=== PATIENT | male | born 1945 | race Caucasian/White ===

== ENCOUNTER → 2024-08-02 15:08 | Outpatient (REF) | payer OTHER, SELFPAY | LOC: RAD 15:08 | PROVIDERS: ATTENDING PHYSICIAN Family Medicine | DX: R07.9 Chest pain, unspecified (principal); W19.XXXA Unspecified fall, initial encounter | CPT/HCPCS: 71046 ==

== ENCOUNTER 2024-08-30 23:06 | Inpatient (IN) | payer OTHER, SELFPAY ==
[2024-08-30 18:41] VITALS: BP 186/94
[2024-08-30 18:58] LABS: % Basophils 0.5 % (0-2); % Immature Granulocytes 0.6 % (0-0.5); % Lymphocytes 30.2 % (20.5-51.1); % Monocytes 8.7 % (1.7-9.3); Absolute Eosinophils 0.3 10^3/uL (0-0.7); Absolute Immature Granulocytes 0.1 10^3/uL (0-0.05); Absolute Lymphocytes 2.6 10^3/uL (1.2-3.4); Absolute Monocytes 0.8 10^3/uL (0.1-0.6); Absolute Neutrophils 4.9 10^3/uL (1.4-6.5); Hematocrit 45.6 % (39.0-52.0); Hemoglobin 15.5 g/dL (13.0-18.0); Mean Corpuscular Hgb 30.2 pg (27.0-31.0); Mean Corpuscular Volume 88.7 fL (80.0-94.0); Mean Platelet Volume 9.4 fL (7.4-10.4); Nucleated Red Blood Cells % 0 % (-); Platelet Count 165 10^3/uL (130-400); Red Blood Cell Count 5.14 10^6/uL (4.70-6.10); Red Cell Dist. Width 13.4 % (11.5-14.5); White Blood Cell Count 8.7 10^3/uL (4.8-10.8)
[2024-08-30 19:20] LABS: Troponin I < 0.012 ng/ml
[2024-08-30 19:32] LABS: ALT (SGPT) 18 U/L (0-50); AST (SGOT) 23 U/L (17-59); Albumin 4.9 g/dl (3.5-5.0); Alkaline Phosphatase 78 U/L (38-126); Blood Urea Nitrogen 21 mg/dl (9-20); Calcium 9.7 mg/dl (8.4-10.2); Carbon Dioxide 27 mmol/L (22-30); Chloride 101 mmol/L (98-107); Glucose 168 mg/dl (70-99); Potassium 4.2 mmol/L (3.5-5.1); Sodium 139 mmol/L (135-145); Total Bilirubin 0.9 mg/dl (0.2-1.3); Total Protein 7.1 g/dl (6.3-8.2); eGFR > 60.00
[2024-08-30 20:23] VITALS: BMI 23.3
[2024-08-30] MEDS: NSS 500 IV (20:36)
[2024-08-30 20:52] VITALS: BP 161/85
[2024-08-30 21:00] VITALS: BP 156/81
[2024-08-30 22:00] VITALS: BP 151/76
--- NOTE | 2024-08-30 22:14 | HPS.HSE ---
Family Physician
-
Family Physician: Duran Chamorro
Chief Complaint
-
Cardiac Pause
History of Present Illness
Patient is a 79 y/o male past medical history of paroxysmal atrial fibrillation, hypertension, hyperlipidemia and panic disorder who was sent by cardiology for cardiac pause. Patient was wearing an outpatient CAM monitor due to complaints of
'missed heart beats'. He received a call today from cardiology today that he had a prolonged pause (7 seconds per ED sign out) and was instructed to go to the emergency department for pacemaker placement. Patient denies chest pain or palpitations.
Medical History
Past Medical History
Past Medical History: Reports Other
Additional Past Medical History:
Paroxysmal Atrial Fibrillation
Essential Hypertension
Hyperlipidemia
Panic Disorder
GERD
Branch Retinal Vein Occlusion
Past Surgical History: Reports Other
Additional Past Surgical History:
Cholecystectomy
Right Eyelid Skin Cancer Excision
Right Parotid Tumor Excision
ROSSY / Cardioversion
Social History
Tobacco: Former Smoker
Family History
Family History: Not pertinent
Allergies / Home Medications
Allergies reflects when Allergies were last updated in [facility].
Home Medications with original date entered in [facility]
Allergy/Medication List:
Allergies
Allergy/AdvReac Type Severity Reaction Status Date / Time
No Known Allergies Allergy Verified 08/30/24 22:20
Home Medications
apixaban 5 mg tablet (Eliquis) 5 mg PO BID Blood clot prevention/tx 03/27/21
ascorbic acid (vitamin C) 500 mg tablet (Vitamin C) 500 mg PO DAILY Supplement 03/27/21
lisinopril 5 mg tablet 5 mg PO DAILY Blood pressure 03/27/21
multivitamin 1 ea PO DAILY Supplement 03/27/21
nortriptyline 50 mg capsule 50 mg PO HS Depression 03/27/21
pantoprazole 40 mg tablet,delayed release 40 mg PO HS Gastrointestinal issue 03/27/21
simvastatin 40 mg tablet 40 mg PO HS High cholesterol 03/27/21
Review of Systems
-
A 12 point ROS was completed and negative except as noted: Yes
Constitutional: Denies Fever or Chills
Respiratory: Denies Trouble Breathing
Cardiac: Reports Palpitations; Denies Chest Pain
Physical Exam
Vital Signs
Vital Signs
Temp Pulse Resp BP Pulse Ox
98.5 F 88 16 156/81 94
08/30/24 18:41 08/30/24 21:30 08/30/24 21:30 08/30/24 21:00 08/30/24 21:30
Physical Exam
General: Comfortable and Conversant
HEENT: Anicteric and Moist mucous membranes
Respiratory: Clear and Non Labored Respirations
Cardiac: S1/S2 and Regular Rhythm (Occasional short pause)
GI: Soft and Non Tender
Rectal: Deferred by Provider
Musculoskeletal: No Clubbing, No Cyanosis and No Edema
Skin: Warm and Dry
Neuro: Awake, Alert and Oriented
Psych: Calm
Laboratory Results
-
08/30/24 18:50
08/30/24 18:50
Laboratory Results
Total Bilirubin 0.9 mg/dl (0.2-1.3) 08/30/24 18:50
AST 23 U/L (17-59) 08/30/24 18:50
ALT 18 U/L (0-50) 08/30/24 18:50
Alkaline Phosphatase 78 U/L (38-126) 08/30/24 18:50
Troponin I < 0.012 ng/ml 08/30/24 18:50
Data Reviewed
-
Lab Data: Labs Reviewed by me
Impression/Plan
-
Sick Sinus Syndrome with Sinus Pauses
-Admit to IVU with external pacer pads in place
-Consult Cardiology
-Atropine prn to be kept at bedside should patient developed symptomatic bradycardia
-NPO after midnight for pacemaker placement in AM
Paroxysmal Atrial Fibrillation
-Eliquis on hold for pacemaker
Essential Hypertension
-Continue lisinopril with hold parameters
Hyperlipidemia
-Continue simvastatin
Panic Disorder
-Continue nortriptyline
DVT proph: SCDs
Code Status: Full Code
--- NOTE | 2024-08-30 22:38 | W.PN.UPDATE ---
Update Note
Progress Note Update
This is an addendum to H&P written by DEDRA Ann
I saw and examined the patient.
The CLINICAL ATHLETIC INSTRUCTOR's note was reviewed and I agree with the note.
Comment:
Mr. Awais Davis is a 79 yo man with hx afib on Eliquis, GERD, essential HTN, anxiety sent to the ER as outpatient holter monitor showed frequent pauses, one as long as 7 seconds.
Triage VSS. Labs WNL< Trop < 0.012.
EKG with sinus tachycardia @ 102
Tele with frequent 1-2 sec pauses
sick sinus syndrome
-admit to IVU
-keep pacer verenice on patient, atropine at bedside PRN
-Cardiology aware of admission
-NPO after MN for PPM
-hold [employer] SUPER[employer]OR Eliquis
Afib
-hold [employer]PER[employer] eliquis
Essential HTN
-[employer] SUPER[employer]OR Lisinopril
GERD - [employer] SUPER[employer]OR Protonix
HLD - [employer] SUPER[employer]OR Statin
Anxiety - [employer] SUPER[employer]OR Nortriptyline
DVT PPx SCD
FULL CODE
76 minutes spent on patient care
--- NOTE | 2024-08-30 22:48 | ED.GENMED ---
History of Present Illness
General
Chief Complaint: Heart Rate Problem
Source: patient
Exam Limitations: none
Time Seen by Provider: 08/30/24 20:22
Nursing documentation reviewed up to this point in time: agreed with
History of Present Illness
History of Present Illness:
79-year-old male past medical history of previous A-fib currently on Eliquis, hypertension hyperlipidemia that had an outpatient Holter monitor that was showing significant 7-second pauses. He was contacted by cardiology and told to come to the ER
to be admitted for a pacemaker tomorrow morning. He otherwise feels well at this point. Denies chest pain shortness of breath
Past History
Past History
ED Past Medical History: Arrthythmia (Atrial fibrillation), GERD, HTN, Hypercholesterolemia and Other (Impaired vision)
ED Past Surgical History: Cholecystectomy and Tonsilectomy
Social History
Tobacco: Non-smoker
Alcohol: None
Drug: None
Personal:
Living: with family
Employment: Employed
Review of Systems
Review of Systems
Allergies reviewed?: Yes
All Other Systems: ROS reviewed and negative except as documented in HPI and ROS
Phy Exam
Physical Exam
Physical Exam:
GENERAL: Alert , in no apparent distress
EYE: pupils equal and reactive
NECK: Supple, no significant adenopathy.
ENT: o/p clr, mmm.
CARDIAC: Regular rate and rhythm .
LUNGS: Clear breath sounds bilaterally, no acute respiratory distress, no wheezes/rales/rhonchi
ABDOMEN: Soft, without focal tenderness, no r/g, no cvat
NEUROLOGICAL: Alert and oriented, no focal neuro deficits
SKIN: Warm and dry, skin intact.
MUSCULOSKELETAL: No edema, well perfused.
PSYCH: Normal and appropriate interaction.
Course
Orders/Labs/Results
Orders:
Orders
08/30/24 18:34
Electrocardiogram (*1) Urgent
Reason for Study: Bradycardia / Tachycardia
EKG- Treatment ONCE
08/30/24 18:50
Complete Blood Count/With Diff Urgent
Comprehensive Metabolic Panel Urgent
TSH Reflex To Free T4 Urgent
Comment: ADD ON
Troponin I Urgent
08/30/24 20:22
0.9% Sodium Chloride 500 ml [Nss] 500 ml IV BOLUS
08/30/24 22:25
Admit/Transfer Patient As Directed
Co-Sign Provider:
Level of Care: Inpatient admission
Assign to:: IVU
Physician / Group: Kamran
Diagnosis: SSS
Reason for Hospitalization: Pacemaker
Expected length of stay greater than two midnights?: Yes
ELOS- Estimated Length of Stay in days: 3
I certify the patient meets the requirements for IP care: Yes
08/30/24 22:26
PRN Pain Medication Management As Directed
May give lesser potent ordered pain med per pt: Yes
preference::
Protocol:: Medication orders for pain may be administered in a
manner that supports deferring to patient preference
when the pt is:
- Requesting an ordered lesser potent pain medication.
Least to most potent pain medications are defined
as: acetaminophen < NSAID < tramadol < opioids
(morphine, oxycodone, hydromorphone).
- Requesting a lesser dose of the same medication IF
ORDERED.
- Requesting a less intrusive route of administration
if both routes are prescribed by the provider (PO <
IV).
08/30/24 22:29
Code Status As Directed
Resuscitation Status: Full Code
08/30/24 22:32
Add On- LAB Urgent
Tests Added?: TSH w/Reflex
Abnormal Lab Results
08/30/24
18:50
Abs Immat Gran (auto) 0.1 H 10^3/uL
(0-0.05)
Absolute Monos (auto) 0.8 H 10^3/uL
(0.1-0.6)
Immature Gran % 0.6 H %
(0-0.5)
BUN 21 H mg/dl
(9-20)
Glucose 168 H mg/dl
(70-99)
08/30/24 18:50
08/30/24 18:50
Vital Signs
Initial and Last Documented VS:
Initial Vital Signs
Temp Pulse Resp BP Pulse Ox
98.5 F 93 16 186/94 98
08/30/24 18:41 08/30/24 18:41 08/30/24 18:41 08/30/24 18:41 08/30/24 18:41
Last Documented Vital Signs
Temp Pulse Resp BP Pulse Ox
98.5 F 65 18 151/76 97
08/30/24 18:41 08/30/24 22:45 08/30/24 22:45 08/30/24 22:00 08/30/24 22:45
MDM/Problems Addressed
MDM/Problems Addressed:
79-year-old male presenting to the emergency department today for pacemaker. Had sinus pauses on Holter monitor. Feels generally well at this initial blood pressure elevated otherwise vital signs are normal. Some slight pauses below 2 seconds
while here labs showing potential slight dehydration was given some fluids troponin negative Case discussed with cardiology plan to admit for pacer tomorrow. Pads were placed for safety.
*Critical Care Note
Total Time (30-74mins, 75-104mins- exclusive of procedures): Not Applicable
ED Attending Note
-
Portions of this chart may have been created with voice recognition software.� Occasional wrong word or��sound alike� substitutions may have occurred due to the inherent limitations of voice recognition software.
Discharge Plan
Departure
Patient Disposition: Admit
Date of Disposition: 08/30/24
Time of Disposition: 22:50
Admit to: IVU
Admit to doctor: Madai
Presentation/result/management discussed w/ accepting MD/DO: Hospitalist
Patient with high blood pressure during this ER visit?: No
Condition: Fair
Covid-19: Not Applicable
Discharge Problem:
Sinus pause
Prescriptions:
No Action
multivitamin 1 EACH tablet
1 ea PO DAILY
simvastatin 40 MG tablet
40 mg PO HS
ascorbic acid (vitamin C) [Vitamin C] 500 MG tablet
500 mg PO DAILY
pantoprazole 40 MG tablet,delayed release (DR/EC)
40 mg PO HS
lisinopril 5 MG tablet
5 mg PO DAILY
nortriptyline 50 MG capsule
50 mg PO HS
Eliquis 5 MG tablet
5 mg PO BID
Referrals:
Duran Chamorro DO [Family Provider] -
Interventions
Interventions:
*Risk Screen - Suicide Last Done: 08/30/24 18:41
*General Assessment Last Done: 08/30/24 20:25
*Neglect/Abuse Screening Last Done: 08/30/24 20:25
*ED- Fall Risk Assessment Last Done: 08/30/24 20:25
*ED COVID-19 Vaccine History Last Done: 08/30/24 20:25
ED- Cardiac Assessment Last Done: 08/30/24 20:46
ED- Pulmonary Assessment Last Done: 08/30/24 20:46
Discharge Date and Time
Print Language: GREEK
[2024-08-30 23:00] VITALS: BP 145/82
[2024-08-30 23:46] LABS: TSH Reflex To Free T4 0.74 uIU/ml (0.47-4.68)
[2024-08-31] VITALS (19 sets, daily range): BP systolic 123–187; BP diastolic 75–97; BMI 23.3; BMI 23.4
--- NOTE | 2024-08-31 07:16 | PTCARENOTE ---
received the patient from the ED at approx 0615. AAOx3. NPO since midnight. SR on tele 90s. bp 163/88. CHG wipes completed. chest clipped. answered all questions. call kan within reach.
[2024-08-31 07:36] LABS: Hepatitis C Antibody Negative (Negative)
--- NOTE | 2024-08-31 08:00 | PTCARENOTE ---
Patient sent to heart station on a stretcher
[2024-08-31] MEDS: ZESTRIL 5 MG PO (09:24)
--- NOTE | 2024-08-31 09:26 | CON.CAR ---
Consultation
Consultation Request
Date/Time Consultation Requested: 08/31/24, 7am
Date/Time Consultation Performed: 08/31/24, 730am
Requesting Provider: Jani
Performing Provider: Cassandra
Reason for Consultation: bradycardia
Medical History
-
Chief Complaint: abnormal library monitor
History of Present Illness:
79 yo male with PMH of paroxysmal A fib on eliquis, sinus node dysfunction, HTN is admitted due to severe sinus node dysfunction with 6-7 second sinus pauses on outpatient monitor.
Patient has history of falls, and there was concern for syncope/pre-syncope, and monitor was ordered.
Patient is a manager small business.
Past Medical History
Past Medical History: Arrhythmias (paroxysmal A fib) and HTN
Past Surgical History: Other (cataract 2023)
Social History
Tobacco: Non-Smoker
Family History
Family History: Early CAD (none)
Allergies / Home Medications
Allergy/AdvReac Type Severity Reaction Status Date / Time
No Known Allergies Allergy Verified 08/30/24 22:20
�Medication �Instructions �Recorded �Confirmed �Type
apixaban 5 mg tablet (Eliquis) 5 mg PO BID Blood clot 03/27/21 08/30/24 History
prevention/tx
ascorbic acid (vitamin C) 500 mg 500 mg PO DAILY Supplement 03/27/21 08/30/24 History
tablet (Vitamin C)
lisinopril 5 mg tablet 5 mg PO DAILY Blood pressure 03/27/21 08/30/24 History
multivitamin 1 ea PO DAILY Supplement 03/27/21 08/30/24 History
nortriptyline 50 mg capsule 50 mg PO HS Depression 03/27/21 08/30/24 History
pantoprazole 40 mg tablet,delayed 40 mg PO HS Gastrointestinal issue 03/27/21 08/30/24 History
release
simvastatin 40 mg tablet 40 mg PO HS High cholesterol 03/27/21 08/30/24 History
Review of Systems
-
History Source: Patient
All other systems: Negative unless noted
Neurological: Dizzy
Physical Exam
Vital Signs
Temp Pulse Resp BP Pulse Ox
97.7 F 97 20 187/97 96
08/31/24 06:30 08/31/24 06:21 08/31/24 06:30 08/31/24 06:21 08/31/24 06:30
Lab Results
08/30/24 18:50
08/30/24 18:50
Troponin I < 0.012 ng/ml 08/30/24 18:50
Physical Exam
General: Well Developed and Well Nourished
HEENT: Normocephalic and Anicteric
Respiratory: Clear and Non Labored Respirations
Cardiac: S1/S2 (normal), Regular Rhythm, Murmur (none), Peripheral Edema (none) and JVD (none)
Musculoskeletal: Clubbing, No Cyanosis and No Edema
Skin: Warm and Dry
Neuro: AO x 3
Psych: Calm
Impression / Plan
-
79 yo male with PMH of paroxysmal A fib on eliquis, sinus node dysfunction, HTN is admitted due to severe sinus node dysfunction with 6-7 second sinus pauses on outpatient monitor.
# Sinus node dysfunction, severe
-occupation: manager small business
-6-7 second sinus pauses on outpatient monitor
-likely symptomatic with prior h/o of falls, suspected syncope/pre-syncope based on outpatient records
-echo today
-last eliquis: 08/30 5pm
-discussed with EP: PPM today
# Paroxysmal A fib
-sinus on tele, with 2-3 second sinus pauses here
-assess to resume eliquis post PPM
# HTN
-he reports component of white coat syndrome
-chronic, continue lisinopril
Data Reviewed
-
EKG: Tracing Personally Visualized and interpreted (ST 102) and Other (Tele: sinus, 2-3 second pauses)
Labs: Labs Reviewed by me
Old Records: Reviewed
--- NOTE | 2024-08-31 11:55 | W.PN.UPDATE ---
Update Note
Progress Note Update
Briefly, patient is a pleasant 79-year-old male with a past medical history of significant for hypertension, sinus node dysfunction, paroxysmal atrial fibrillation on Eliquis who presents from outpatient office due to severe sinus node dysfunction
with 6-7-second sinus pauses on event monitor as outpatient. Patient has a longstanding history of falls and there is a concern for syncope/presyncope for which the monitor was initially ordered. In discussion with patient, patient notes skipped
heartbeats but denies any current episodes of syncope. Review of chief psychology demonstrates sinus rhythm/sinus tachycardia with sinus pauses 3-4 seconds. Patient is not on rate or AV vic blocking agents. In the setting of patient's frequent
symptomatic irreversible sinus pauses, sick sinus syndrome, recent falls, would recommend patient undergo implant dual-chamber pacemaker. Regarding pacemaker, we discussed pacemaker indications and device implant in detail. For implant there is an
approximate 1:1000 risk of OH/stroke/ and a 1% risk of pneumothorax/tamponade/infection/bleeding. We also discussed post procedure implant restrictions including positions to avoid with implant arm for first six weeks after implant as well as
driving restrictions. I took time to answer all questions. Preprocedure orders placed. Consent obtained. Patient verbalized understanding and agreed with plan.
--- NOTE | 2024-08-31 15:45 | PTCARENOTE ---
Report called to label rewinder. CHG wipes to chest, gown changed. Patient sent in bed
--- NOTE | 2024-08-31 16:25 | CM ---
spoke to pt i room, he is prev indep, lives with his in a 1 story home with 3 steps to enter. he denies any dc planning neds or dme's. plan is for dc to home when medically stable.
--- NOTE | 2024-08-31 17:46 | W.PN.HOSP.TC ---
Today's Communication/Plan
-
Assessment / Plan
Assessment / Plan
NAD
Scleral Anicteric
MMM
No JVD
CTABL
RRR, S1/S2
Soft, NT, ND, BS+
Warm, Dry
AAOx3
Calm
Sick sinus syndrome with sinus pauses
6-7 seconds sinus pause
Cardiology evaluated
Monitoring on telemetry
N.p.o.
PPM to be placed today
Avoid AV vic blocking agent
Continue to have pacer pads on cutaneously
Paroxysmal atrial fibrillation
Sinus on telemetry with 2 to 3-second sinus pauses
Resume Eliquis post PPM
Hyperlipidemia
Continue statin
Panic disorder
Continue nortriptyline
Hypertension
Continue lisinopril
Anticipated Discharge: Within 24 hours
Subjective/Interval History
-
Date of Service: August 31, 2024
Seen and examined. No new complaints. No acute overnight events.
He states he can feel in his heart stops beating/skips a beat
Objective Data
-
Vital Signs:
Vital Signs
Temp Pulse Resp BP Pulse Ox
98.4 F 100 20 153/75 95
08/31/24 11:20 08/31/24 12:15 08/31/24 11:20 08/31/24 11:20 08/31/24 11:20
I&O
08/30/24 08/31/24 09/01/24
06:59 06:59 06:59
Output Total 300 / 300 1000 / 1000
Balance -300 / -300 -1000 / -1000
--- NOTE | 2024-08-31 18:10 | ITS.CL.PACE ---
Manager Of Employee Relations - Pacemaker Implant
Pacemaker Implant
Procedure Report:
Primary Care Doctor: Duran Chamorro MD
Primary Greenskeeper Head: Stevie Bull MD
Procedure Date: 08/31/2024
Name of procedure:
1. Placement of a dual-chamber pacemaker with left bundle area pacing lead for conduction system pacing
2. Subclavian venography
History:
1. Patient is a pleasant 79-year-old male with a past medical history of significant for hypertension, sinus node dysfunction, paroxysmal atrial fibrillation on Eliquis who presents from outpatient office due to severe sinus node dysfunction with
6-7-second sinus pauses on event monitor as outpatient.
2. Please refer to H&P for complete history.
Indication:
Sick sinus syndrome
Sinus node dysfunction
symptomatic sinus pauses
Methods:
After informed consent was obtained, the patient was brought to the EP laboratory in a postabsorptive, nonsedated state. Peripheral IV access was established. Prophylactic antibiotics were administered prior to incision. Continuous ECG, blood
pressure, and pulse oximetry were initiated. Cardioversion patch electrodes were placed on the patient's chest and back. A grounding patch was applied to the skin. Sedation was administered by anesthesia services.
In order to define the extrathoracic portion of the subclavian vein and exclude significant venous obstruction or anomalous anatomy, subclavian venography was performed prior to the procedure. Using the patient's left peripheral IV, contrast was
injected and images were recorded. The left subclavian vein and SVC were found to be widely patent.
The left chest was prepared and draped in a sterile fashion. A time-out was performed. Local anesthesia was injected in the subcutaneous tissue in the infraclavicular area. An incision was made medial to the deltopectoral groove. The subcutaneous
tissue was dissected the level of the prepectoral fascia. A subcutaneous pocket was created. Under fluoroscopic guidance and with the assistance of the images from the venogram, 2 separate venipunctures were made using micropuncture and modified
Seldinger technique. These were performed in the extrathoracic portion of the subclavian vein. Guidewires were passed and two peel-away sheaths were placed, and used to advance leads into the circulation.
Fluoroscopy was used to determine likely anatomic site for left bundle branch pacing. The Medtronic C315 sheath was used to deliver the Medtronic 3830 Selectsecure pacing lead with the helix exposed just exposed from the sheath tip during continuous
monitoring when pacemapping the septum during gentle clockwise rotation to obtain a paced QRS morphology of a W pattern in lead V1. Once the suspected optimal site was identified, lead deployment was performed with several rapid rotations as paced
QRS morphology was intermittently monitored until a paced QRS complex in lead V1 demonstrated development of an R wave (qR or rSR). Unipolar pacing impedance dropped by approximately 100-200 ohms suggesting it had reached the left ventricular
subendocardial. Stable VEgm injury current is present throughout lead position and at end of case. Final unipolar pacing impedance is 950 Ohms. Unipolar pacing threshold is stable at 0.75 V @ 0.4 ms. The patient had pre-existing narrow QRS. Final
conduction system paced QRS complex duration is 90 ms, LVAT is 88 ms, and peak V5 -> peak V1 timing is 31 ms. The C315 sheath was slit under fluoroscopy ensuring lead position and stability.
Next, the right atrial lead was positioned in the right atrial appendage. Adequate sensing and pacing parameters were found, and no diaphragmatic stimulation was seen with high-output pacing. Both sheaths were split, and the leads were secured to
the fascia with Ethibond ties.
The pocket was flushed with antibiotic solution and hemostasis was assured. The generator was connected to the leads and placed inside the pocket. The device was sutured to the fascia. Antibiotic envelope was used. Floseal was applied. The wound
was closed with 3 running layers of absorbable suture, and steri-strips were applied. Dressing applied over steri-strips in standard fashion.
Following the procedure, the patient was taken to the recovery area in stable condition. A chest x-ray to be obtained post procedure as routine.
Lead parameters and device programming:
- RA Lead (Medtronic, Model 5076, #[id number]): Sensing 1.1 mV, Pacing threshold 2.0 V at 0.4 ms, Imp 646 Ohm
- RV Lead (Medtronic, Model 3830, #[id number]): Sensing 7.4 mV, Pacing threshold 0.75 V at 0.4 ms, Imp 684 Ohm
- Device: Medtronic, Model W1DR01 pacemaker (# [id number]), programmed AAIR�DDDR, mode switch on, lower tracking rate 60, upper tracking rate 130 ppm
Conclusions:
1. Successful placement of a dual-chamber pacemaker with conduction system pacing (LBBAP)
2. Subclavian venography
Recommendations:
1. Return to patient room
2. Chest x-ray today, [facility] in AM
3. IV antibiotics while the patient is admitted.
4. OK to resume home medications as indicated; if site looks OK 09/01/2024, OK to resume OAC 09/02/2024 AM
5. Pressure dressing to be removed in AM, aquacell to remain until wound check
6. Follow-up will be arranged in the office in 7-10 days post-discharge
Pelon Calderon, DO, FACC
Clinical Cardiac Balance Recesser
cc: Dr Duran Chamorro, Dr Stevie Bull
--- NOTE | 2024-08-31 18:10 | PTCARENOTE ---
Patient out of CCL around 1800 from PPM insertion. Left arm immobilizer in place, dressing CDI at this time. Patient AOx4, does not c/o pain at this time. Tele strip completed per protocol= ST 106bpm. All needs met at this time, call kan within
reach.
--- NOTE | 2024-08-31 20:32 | PTCARENOTE ---
received pt at change of shift. EKG obtained and CXR completed. VSS, SR on tele monitor. Left arm immobilizer on. Left chest wall dressing CDI. Pt educated on restrictions, call kan within reach.
[2024-08-31] MEDS: PROTONIX 40 MG PO (22:27)
[2024-08-31] MEDS: PAMELOR 50 MG PO (22:27)
[2024-08-31] MEDS: LIPITOR 20 MG PO (22:27)
[2024-08-31] MEDS: ANCEF 5 IV (23:54)
[2024-09-01 04:37] VITALS: BP 127/68
[2024-09-01 04:57] LABS: Hematocrit 43.6 % (39.0-52.0); Hemoglobin 14.8 g/dL (13.0-18.0); Mean Corp Hgb Conc. 33.9 g/dL (33.0-37.0); Mean Corpuscular Hgb 29.7 pg (27.0-31.0); Mean Corpuscular Volume 87.4 fL (80.0-94.0); Mean Platelet Volume 9.1 fL (7.4-10.4); Platelet Count 142 10^3/uL (130-400); Red Blood Cell Count 4.99 10^6/uL (4.70-6.10); Red Cell Dist. Width 13.4 % (11.5-14.5); White Blood Cell Count 9.1 10^3/uL (4.8-10.8)
[2024-09-01 05:06] VITALS: BMI 23.0
--- NOTE | 2024-09-01 05:07 | PTCARENOTE ---
Pt NSR with Apaced on monitor. Denies pain or SOB. OOB with x1 assist. Call kan in reach
[2024-09-01 05:20] LABS: Blood Urea Nitrogen 19 mg/dl (9-20); Calcium 9.3 mg/dl (8.4-10.2); Carbon Dioxide 25 mmol/L (22-30); Chloride 104 mmol/L (98-107); Estimated Creatinine Clearance 84 ml/min; Glucose 115 mg/dl (70-99); Magnesium 2.2 mg/dl (1.6-2.3); Potassium 4.2 mmol/L (3.5-5.1); Sodium 138 mmol/L (135-145); eGFR > 60.00
[2024-09-01 06:56] VITALS: BP 117/67
[2024-09-01] MEDS: ZESTRIL 5 MG PO (08:45)
[2024-09-01] MEDS: ANCEF 5 IV (08:45)
--- NOTE | 2024-09-01 09:55 | W.PN.CD ---
Addendum entered and electronically signed by Duran Vasquez MD 09/01/24 10:06:
I saw and examined the patient.
The FISHING VESSEL DECKHAND's note was reviewed and I agree with the note.
Patient feels well and wants to go home. Left upper chest pacemaker site appears fine. Reviewed issues with EP/Dr. Cisse. Device functioning appropriately by interrogation.
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
reading. This has been communicated with Dr. Gunter/hospitalist who is coordinating follow-up CT for this.
From a cardiology standpoint patient stable for discharge. Eliquis to be resumed tomorrow morning
Original Note:
Today's Communication / Plan
-
Okay for home today from cardiac perspective. Pacemaker site looks good and he has incision check planned at [facility] office later this week, then he will follow-up with Dr. Bull as usual. We reviewed activity restrictions and site care. Resume Eliquis
tomorrow AM.
Impression / Plan
-
79 yo male with PMH of paroxysmal A fib on eliquis, sinus node dysfunction, HTN is admitted due to severe sinus node dysfunction with 6-7 second sinus pauses on outpatient monitor.
# Sinus node dysfunction, severe
-occupation: business management manager
-6-7 second sinus pauses on outpatient monitor
-likely symptomatic with prior h/o of falls, suspected syncope/pre-syncope based on outpatient records
-echo 08/31/24: Normal biventricular size and systolic function without regional wall motion abnormality. Estimated LVEF 65-70%. No significant valve disease. Mildly dilated aortic root (SOV 4.2cm).
-now s/p pacemaker with Dr. Calderon 08/31/24. Left pectoral incision site looks good- no hematoma, Aquacel dressing is intact. Carelink monitor stable this AM. Follow-up incision check is arranged with [facility] office, then follow-up with Dr. Bull as
already planned. We reviewed activity restrictions and site care.
# Paroxysmal A fib
-in SR here
-resume Eliquis 09/02/24
# HTN
-chronic, stable
-continue ACEI
# Abnormal CXR:
-per radiology report- deviation of the trachea toward the right, suggesting a intrathoracic mass with mass effect in the upper chest. 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 As warranted, further evaluation with CT of
the chest could be performed. Relayed to hospitalists for further w/u.
Physical Exam
Vital Signs/Labs
Vital Signs
Temp Pulse Resp BP Pulse Ox
97.5 F 72 20 127/68 94
09/01/24 06:55 09/01/24 06:15 09/01/24 06:55 09/01/24 04:37 09/01/24 06:55
08/31/24 09/01/24 09/02/24
06:59 06:59 06:59
Actual Weight 80.3 kg 79.1 kg
09/01/24 04:44
09/01/24 04:44
Magnesium 2.2 mg/dl (1.6-2.3) 09/01/24 04:44
LAB Results
08/30/24
18:50
Troponin I < 0.012
Physical Exam
Constitutional: No acute distress
EENT: Anicteric
Cardiovascular: Rhythm & rate is regular
Respiratory: Respiratory effort normal and Lungs clear to auscul.
Neuro/Psych: AO x 3
Other: Cardiac Device Site (aquacell intact, no hematoma)
Data Reviewed
-
Date of Service: September 01, 2024
EKG: Other (SR, pacing noted)
Labs: Labs Reviewed by me
[2024-09-01 10:45] VITALS: BP 133/68
--- NOTE | 2024-09-01 12:42 | PTCARENOTE ---
Patient discharged to home. Instructions provided, patient verbalized understanding. IV and telemetry removed. Precautions reviewed. Patient escorted to main lobby
--- NOTE | 2024-09-01 14:30 | W.DCSUMMARY ---
Discharge Summary
Discharge Data
Date of Admission: 08/30/24
Date of Discharge: 09/01/24
-
Pending Results: No
Hospital Course
79 y/o male past medical history of paroxysmal atrial fibrillation, hypertension, hyperlipidemia and panic disorder
Presented with from cardiology office for concern of sinus pause with complaints of missed heart beats. Evaluated by electrophysiology and recomened pacemaker placement that happened on 09/01/2024. Pre and Post PPM chest imaging completed. Findings
as below but will need to obtain a CT Chest as an outpatient. PCP (Dr. Chamorro) updated over [employer] about this.
CXR
IMPRESSION:
Pleural thickening and minor parenchymal opacity noted on the left, as described. In the absence of any prior examination fora comparison, this could represent chronic pleural-parenchymal changes, possibly related to reported history of recent
trauma, or subtle pneumonia. There is also mild soft tissue thickening along the left lateral margin of the trachea, as described. If there are no prior examinations available for comparison, follow-up chest CT would be recommended for further
evaluation of these findings.
In accordance with Act 112, known as the Patient Test Results Information Act, a letter will be sent to the patient which notifies the patient that a significant abnormality may exist. The letter will be sent within approximately 20 days of the
date the results were sent to the ordering health care practitioner.
CXR
IMPRESSION:
Placement of left chest wall pacemaker, lead tips right atrium and right ventricle. No evidence for significant pneumothorax.
Deviation of the trachea toward the right, suggesting a intrathoracic mass with mass effect in the upper chest. 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 As warranted, further evaluation with CT of the chest could be
performed.
Seen and examined on the day of discharge. No new complaints. No acute overnight events
NAD
Scleral Anicteric
MMM
No JVD
CTABL
RRR, S1/S2
Soft, NT, ND, BS+
Warm, Dry
AAOx3
Calm
More than 30 minutes spent in discharge including
Final examination of the patient
Summarizing hospital stay
Instructions for continuing care to all relevant caregivers
Preparation of discharge records, prescriptions, and referral forms
Total time spent (in minutes): 33mins
Discharge Plan
-
Patient Disposition: Home (Routine Discharge)
Discharge Diagnosis/Procedures: Pacemaker implant
Diet: Low Cholesterol
Activity Restrictions/Additional Instructions:
Presented with from cardiology office for concern of sinus pause with complaints of missed heart beats. Evaluated by electrophysiology and recomened pacemaker placement that happened on 09/01/2024. Pre and Post PPM chest imaging completed. Findings
as below but will need to obtain a CT Chest as an outpatient. PCP (Dr. Chamorro) updated at bedside about this.
CXR
IMPRESSION:
Pleural thickening and minor parenchymal opacity noted on the left, as described. In the absence of any prior examination fora comparison, this could represent chronic pleural-parenchymal changes, possibly related to reported history of recent
trauma, or subtle pneumonia. There is also mild soft tissue thickening along the left lateral margin of the trachea, as described. If there are no prior examinations available for comparison, follow-up chest CT would be recommended for further
evaluation of these findings.
In accordance with Act 112, known as the Patient Test Results Information Act, a letter will be sent to the patient which notifies the patient that a significant abnormality may exist. The letter will be sent within approximately 20 days of the
date the results were sent to the ordering health care practitioner.
CXR
IMPRESSION:
Placement of left chest wall pacemaker, lead tips right atrium and right ventricle. No evidence for significant pneumothorax.
Deviation of the trachea toward the right, suggesting a intrathoracic mass with mass effect in the upper chest. 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 As warranted, further evaluation with CT of the chest could be
performed.
Stand Alone Forms: [facility] Inst - Implanted Device
Referrals:
[facility]- [facility] [Provider Group] - 09/06/24 2:40 pm (Incision check appointment)
Duran Chamorro, DO [Family Provider] -
Stevie Bull MD [Active] - 02/06/25 10:20 am
Additional Discharge Medication Instructions: Resume Eliquis on Saturday 09/02 am
Prescriptions:
Continued
multivitamin 1 EACH tablet
1 ea PO DAILY
simvastatin 40 MG tablet
40 mg PO HS
ascorbic acid (vitamin C) [Vitamin C] 500 MG tablet
500 mg PO DAILY
pantoprazole 40 MG tablet,delayed release (DR/EC)
40 mg PO HS
lisinopril 5 MG tablet
5 mg PO DAILY
nortriptyline 50 MG capsule
50 mg PO HS
Eliquis 5 MG tablet
5 mg PO BID
Discharge Orders:
Discharge Patient (As Directed); Ordered 09/01/24
Ordered By: Faraz Gunter
Care Plan Goals
Care Plan Goals:
Problem: Readiness for enhanced knowledge related to diagnosis and treatment plan
Goal: Understand your diagnosis and treatment plan needs, including medications if applicable.
Instructions: Know your diagnosis, underlying causes and treatment plan options, including medications if applicable. Consult with your health care team to learn about your diagnosis and treatment plan, including medications if applicable.
Discharge Date and Time
Discharge Date/Time: 09/01/24 12:52
Print Language: MICRONESIAN
== END 2024-09-01 12:52 | disposition home or self-care (01) | DRG 244 ==
LOC: IVU 23:06
PROVIDERS: Internal Medicine Cardiovascular Disease; Nurse Practitioner Adult Health; Student in an Organized Health Care Education/Training Program; ADMITTING PHYSICIAN Student in an Organized Health Care Education/Training Program; ATTENDING PHYSICIAN Hospitalist; CONSULT PHYSICIAN Internal Medicine; EMERGENCY PHYSICIAN Emergency Medicine; FAMILY PHYSICIAN Family Medicine
PROC: 0JH606Z Insertion of Pacemaker, Dual Chamber into Chest Subcutaneous Tissue and Fascia, Open Approach (ICD-10-PCS; 2024-08-31)
PROC: 02HK3JZ Insertion of Pacemaker Lead into Right Ventricle, Percutaneous Approach (ICD-10-PCS; 2024-08-31)
PROC: 02H63JZ Insertion of Pacemaker Lead into Right Atrium, Percutaneous Approach (ICD-10-PCS; 2024-08-31)
DX: I49.5 Sick sinus syndrome (principal); I48.0 Paroxysmal atrial fibrillation; I10 Essential (primary) hypertension; E78.00 Pure hypercholesterolemia, unspecified; K21.9 Gastro-esophageal reflux disease without esophagitis; F41.0 Panic disorder [episodic paroxysmal anxiety]; Z79.01 Long term (current) use of anticoagulants; Z87.891 Personal history of nicotine dependence
CPT/HCPCS: 33208; 71045; 80048; 80053; 83735; 84443; 84484; 85025; 85027; 86803; 93005; 93306; 96360; 99285; C1769; C1785; C1887; C1892; C1898; Q9967

== ENCOUNTER → 2024-09-15 09:18 | Outpatient (REF) | payer OTHER, SELFPAY | LOC: RAD 09:18 | PROVIDERS: ATTENDING PHYSICIAN Family Medicine | DX: R22.1 Localized swelling, mass and lump, neck (principal) | CPT/HCPCS: 71250 ==

== ENCOUNTER → 2024-10-09 07:28 | Outpatient (REF) | payer OTHER, SELFPAY | LOC: HWRCS 07:28 | PROVIDERS: ATTENDING PHYSICIAN Nurse Practitioner Gerontology; FAMILY PHYSICIAN Family Medicine | DX: I48.0 Paroxysmal atrial fibrillation (principal) | CPT/HCPCS: 78452; 93017; A9500; J2785 ==

== ENCOUNTER → 2024-12-25 09:33 | Outpatient (REF) | payer OTHER, SELFPAY ==
[2024-12-25] VITALS (11 sets, daily range): BP systolic 85–158; BP diastolic 71–97
== END ==
LOC: RADI 09:33
PROVIDERS: ATTENDING PHYSICIAN Otolaryngology; FAMILY PHYSICIAN Family Medicine
DX: R22.2 Localized swelling, mass and lump, trunk (principal)
CPT/HCPCS: 20206; 76942; 88305; 88333; 88334; 99152; 99153

== ENCOUNTER 2025-03-12 06:02 | Day surgery (SDC) | payer OTHER, SELFPAY ==
[2025-02-19 11:34] LABS: Hematocrit 45.2 % (39.0-52.0); Hemoglobin 14.9 g/dL (13.0-18.0); Mean Corp Hgb Conc. 33.0 g/dL (33.0-37.0); Mean Corpuscular Volume 87.9 fL (80.0-94.0); Platelet Count 174 10^3/uL (130-400); Red Cell Dist. Width 13.5 % (11.5-14.5)
[2025-02-19 11:41] LABS: INR 1.09; PT 14.4 Sec (11.4-14.6)
[2025-02-19 11:42] LABS: APTT 31.1 Sec (23.4-35.0)
[2025-02-19 12:24] LABS: ALT (SGPT) 38 U/L (0-50); AST (SGOT) 29 U/L (17-59); Albumin 4.6 g/dl (3.5-5.0); Alkaline Phosphatase 79 U/L (38-126); Blood Urea Nitrogen 20 mg/dl (9-20); Calcium 9.6 mg/dl (8.4-10.2); Carbon Dioxide 30 mmol/L (22-30); Chloride 106 mmol/L (98-107); Glucose 164 mg/dl (70-99); Potassium 4.2 mmol/L (3.5-5.1); Sodium 142 mmol/L (135-145); Total Protein 7.1 g/dl (6.3-8.2); eGFR > 60.00
[2025-02-19 14:15] VITALS: BMI 24.8
[2025-03-12] VITALS (14 sets, daily range): BP systolic 96–176; BP diastolic 53–89; BMI 24.8
[2025-03-12] MEDS: HEPARIN 5000 UNITS SC (07:06)
[2025-03-12] MEDS: TYLENOL 1000 MG PO (07:07)
[2025-03-12] MEDS: NEURONTIN 300 MG PO (07:07)
[2025-03-12] MEDS: NORMOSOL-R/PLASMALYTE-A 1000 IV (07:07)
--- NOTE | 2025-03-12 09:38 | OR.RPT ---
Operative Report
Operative Report
DATE OF OPERATION: March 12, 2025
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
POSTOPERATIVE DIAGNOSIS: Same
SURGEON: Manuel Haywood M.D.
OPERATION: Resection of the left substernal goiter - 74494
ANESTHESIA: GET
ESTIMATED BLOOD LOSS: 5 cc
DRAINS: None
SPECIMEN: thyroid lobe and mediastinal mass
FINDINGS: Left posterior mediastinal mass
COMPLICATIONS: None
PROCEDURE:
The patient was taken to the operating room and placed in the usual supine position. After adequate general endotracheal anesthesia was established, the patient�s neck was extended, prepped, and draped in the typical sterile fashion. A 6 cm
transcervical incision was made two fingerbreadths above the sternal notch. The skin incision was made with the #15 blade, which was taken through the skin into the subcutaneous tissue. The underlying platysma muscle was divided, and subplatysmal
flaps were created superiorly to the thyroid cartilage and inferiorly to the sternal notch. Strap muscles were identified and at the midline.
Attention was turned to the patient�s left thyroid lobe. The left thyroid lobe was mobilized medially. During this process, the left middle thyroid vein and inferior thyroid artery were dissected and ligated with Ligasure. There was a substernal
extension, which was delivered out of the mediastinum through the cervical incision. Next, the left superior pole was taken down by dissecting and transecting the superior pole vessels with a Ligasure. The left thyroid lobe was mobilized medially.
During this process, the left recurrent laryngeal nerve was identified and preserved throughout its entire course. The left superior and inferior parathyroid glands were identified and preserved. The left thyroid lobe with isthmus was resected from
the trachea and sent to the pathology department. After achieving adequate hemostasis, the strap muscle was approximated with #3-0 Vicryl in a running fashion, and the platysma muscles were reapproximated with #3-0 Vicryl in an interrupted manner.
The skin was then closed with #4-0 Monocryl in a running subcuticular technique. Steri-strips and sterile dressings were applied. The patient tolerated the procedure well. The final instrument, needle, and sponge counts were correct.
== END 2025-03-12 12:55 | disposition home or self-care (01) ==
LOC: SDS 06:02
PROVIDERS: ATTENDING PHYSICIAN Surgery; FAMILY PHYSICIAN Family Medicine; OTHER PHYSICIAN Internal Medicine Cardiovascular Disease
DX: E04.2 Nontoxic multinodular goiter (principal)
CPT/HCPCS: 60271; 36415; 80053; 85027; 85610; 85730; 86850; 86900; 86901; 88307; C9250